=== PATIENT | male | born 1990 | race Hispanic/Latino ===

== ENCOUNTER → 2018-10-04 | Outpatient (CLI) | payer BC | LOC: GMAE 17:37 | PROVIDERS: ATTEND Family Medicine | DX: R14.0 Abdominal distension (gaseous) (principal) ==

== ENCOUNTER → 2019-02-21 | Outpatient (CLI) | payer BC ==
--- NOTE | 2019-02-21 10:55 | CT ---
EXAM DESCRIPTION: Chest w/o Contrast CLINICAL HISTORY: 28 years, Male, PULMONARY EOSINOPHILLA COMPARISON: None TECHNIQUE: Thin-section noncontrast axial CT images are obtained according to our protocol. Reconstructed MPR images are created and reviewed as well. FINDINGS: Lungs: Linear densities are seen in both lungs with minimal surrounding groundglass density. Findings are consistent with discoid atelectasis or linear scarring. Mosaic perfusion is seen. Small calcified granuloma in the left apex. Mild biapical pleural-parenchymal scarring. No worrisome pulmonary mass or nodule. Differential considerations would include scarring from old emboli or old bouts of pneumonia, chronic eosinophilic pneumonia, mild disc limited interstitial pneumonitis, subacute and chronic changes of hypersensitivity pneumonitis. Clinical correlation recommended. Mediastinum: Lymph nodes are normal in size. Normal vascular contours. Heart size is normal with no pericardial effusion. Chest wall/axilla: No mass or adenopathy. Lower neck/supraclavicular: No mass or adenopathy. Upper abdomen: Unremarkable upper abdominal viscera. Coronal and sagittal reformatted images confirm the findings. IMPRESSION: Bilateral linear scarring or discoid atelectasis with mild groundglass infiltrates. See above differential considerations. This exam was performed according to our departmental dose-optimization program, which includes automated exposure control, adjustment of the mA and/or kV according to patient size and/or use of iterative reconstruction technique. Total DLP equals 321.91 mGycm. Electronically signed by: Florencio Johnson MD 02/21/2019 10:53 AM CDT
== END ==
LOC: CT 09:27
PROVIDERS: ATTEND Family Medicine
DX: J82 Pulmonary eosinophilia, not elsewhere classified (principal); R92.8 Other abnormal and inconclusive findings on diagnostic imaging of breast

== ENCOUNTER 2020-01-06 07:15 | Emergency (ER) | payer BC ==
--- NOTE | 2020-01-06 07:24 | ED.PDOC ---
History of Present Illness - General Time Seen by Provider: 01/06/20 07:21 - History of Present Illness Initial Comments: 29 M no pmh presents to ED c/o right forearm laceration. Pt states [employer], he was breaking into his home because he locked his keys inside. After punching through a window, he noticed a laceration to his forearm. He c/o associated minor localized pain. Denies h/o similar sx's. Denies alleviating/aggravating factors. Denies associated numbness, tingling, loss of sensation, focal weakness. Pt is otherwise healthy with no other signs, symptoms, and/or complaints. Pt believes last Tetanus was within 5 years, when he was in the . Allergies/Adverse Reactions: Allergies Cefaclor [From Ceclor] Allergy (Verified 01/06/20 07:26) Home Medications: Ambulatory Orders Benralizumab [Fasenra] 30 mg SC MONTHLY 01/06/20 Review of Systems - Review of Systems Constitutional: Denies: chills, fever Musculoskeletal: Denies: back pain, joint swelling, muscle pain Skin: States: other - laceration to right forearm Neurological: Denies: numbness, paresthesia, tingling, weakness Physical Exam - Physical Exam General Appearance: Alert, Comfortable, No apparent distress Eyes, Ears, Nose, Throat Exam: PERRL/EOMI Cardiovascular/Respiratory: regular rate, rhythm, no M/R/G, normal peripheral pulses, no JVD, normal breath sounds, no respiratory distress Elbow/Forearm Exam: pain - right dorsal forearm, midline, 1.5cm linear laceration with minimal subcutaneous involvement, no involvement of tendon/fascia/muscle/bone, hemostatic and clean without visualized or palpated foreign bodies, no crepitance, no deformity, minimal localized TTP only, 2+ radial pulse, cap refill <2 seconds, neurovascularly intact distally. Wrist Exam: normal inspection Hand Exam: normal inspection Neuro/Tendon: normal sensation, normal motor functions, normal tendon functions, responds to pain, no evidence tendon injury Mental Status: alert, oriented x 3 Skin Exam: normal color, warm/dry, other - laceration as described above Progress - Progress Progress: 29 M with simple uncomplicated laceration. I will have XR performed to evaluate for unlikely foreign body retention, have wound irrigated, and perform simple uncomplicated laceration repair. Pt will be discharged thereafter with f/u instructions, education, and instructions for return for suture removal. - Results/Orders Results/Orders: Two-view radiograph right forearm Indication: laceration, eval for foreign body Comparison: None. Impression: Laceration volar aspect mid forearm without radiopaque foreign body or fracture. Mild subcutaneous emphysema at this site. Electronically signed by: Juancho Castillo MD 01/06/2020 7:41 AM CDT I have reviewed radiology imaging and official radiology read. I agree with above findings. Procedures - Laceration/Wound Repair Right Upper Anterior Medial Arm Wound Length (cm): 1.5 - right anterior medial forearm Wound's Depth, Shape: superficial, linear Wound Explored: wound probed and explored throughout entirity of laceration, no foreign bodies present Irrigated w/ Saline (cc's): 100 Betadine Prep?: Yes Anesthesia: 1% Lidocaine Volume Anesthetic (cc's): 4 Wound Repaired With: sutures Suture Size/Type: 3:0, prolene Number of Sutures: 4 Layer Closure?: No Sterile Dressing Applied?: No - Adhesive bandage placed Splint Applied?: No Sling Applied?: No Progress: Pt tolerated well without complications. Departure - Departure Clinical Impression: Laceration of forearm without complication Qualifiers: Encounter type: initial encounter Laterality: right Qualified Code(s): S51.811A - Laceration without foreign body of right forearm, initial encounter Time of Disposition: 08:01 Disposition: Discharge to Home or Self Care Condition: Excellent Instructions: Laceration Repair With Stitches (DC) Diet: resume usual diet Referrals: DONIS SNOW MD [Primary Care Provider] - 1-2 Weeks [facility] [Other] - 1-2 Weeks (Return in 10-12 days for suture removal; as instructed at bedside. ) Home Medications: Ambulatory Orders Benralizumab [Fasenra] 30 mg SC MONTHLY 01/06/20
[2020-01-06] MEDS ORDERED: LIDOCAINE 1% 10 ML VIAL INJ ONE (07:28)
--- NOTE | 2020-01-06 07:42 | RAD ---
Two-view radiograph right forearm Indication: laceration, eval for foreign body Comparison: None. Impression: Laceration volar aspect mid forearm without radiopaque foreign body or fracture. Mild subcutaneous emphysema at this site. Electronically signed by: Juancho Castillo MD 01/06/2020 7:41 AM CDT
[2020-01-06 08:12] VITALS: BP 131/80; TEMP 98.2; O2SAT 99
== END 2020-01-06 08:11 | disposition home or self-care (01) ==
LOC: ER 07:15
DX: S51.811A Laceration without foreign body of right forearm, initial encounter (principal); W25.XXXA Contact with sharp glass, initial encounter; Y92.009 Unspecified place in unspecified non-institutional (private) residence as the place of occurrence of the external cause